=== PATIENT | male | born 1940 | race Two or more races ===

== ENCOUNTER 2017-10-10 09:36 | Outpatient (CLI) | payer OTHER | END 2017-10-10 16:33 | disposition home or self-care (01) | LOC: RAD 501 09:36 | DX: M15.8 Other polyosteoarthritis (principal); M05.79 Rheumatoid arthritis with rheumatoid factor of multiple sites without organ or systems involvement; M06.89 Other specified rheumatoid arthritis, multiple sites ==

== ENCOUNTER 2020-07-27 10:37 | Inpatient (IN) | payer OTHER ==
[~2020-07-27] VITALS: Ht 177.8 cm; Wt 77.1 kg
--- NOTE | 2020-07-27 10:44 | NUR ---
PACIENTE ALERTA Y ORIENTADO EN LIANNA CESAR ESFERAS, REFIERE MALESTAR EN AREA PELVICA Y SANGRADO EN LA ORINA DESDE HACE UNOS PHIPPS.
--- NOTE | 2020-07-27 10:59 | NUR ---
PTE ES EVALUADO POR DRA. ODONNELL QUIEN ORDENA TRATAMIENTO. RN. Ulises KHAN EDUCA A PTE SOBRE ORDENES MEDICAS Y REFIERE COMPRENDER. CANALIZA Y COLECTA MUESTRAS DE LABORATORIO BAJO MEDIDAS ASEPTICAS. SE MANTIENE A PTE CON IV FLUIDS 0.9% NSS @ 100 ML/HR.
--- NOTE | 2020-07-27 15:28 | NUR ---
PT ALERTA Y ORIENTADO X3 ESFERAS SE RECIBE EN MADHAV CON BARANDAS ELEVADAS Y FRENOS COLOCADOS. HEPARIN LOCK E IVLFUIDS PATENTES. SE MANTIENE BAJO OBSERVACION POR CAMBIOS EN CYRUS, TRANQUILO Y SIN DIFICULTAD RESPIRATORIA. PENDIENTE VISITA DE INTERNISTA DR BUD SHRESTHA. PT [place].
[2020-07-29] MEDS ORDERED: BREO ELLIPTA 21 EACH (10:06)
[2020-07-29] MEDS ORDERED: DILTIAZEM 24HR240 MG (10:06)
[2020-09-06] MEDS ORDERED: RISPERDAL0.5 MG PO (12:35)
[2020-09-06] MEDS ORDERED: URETRON D-S TAB1 TAB PO (12:35)
[2020-09-06] MEDS ORDERED: PRE PROTEIN1 EACH PO (12:35)
[2020-09-06] MEDS ORDERED: CARDIZEM CD240 MG PO (12:35)
[2020-09-06] MEDS ORDERED: PROTONIX40 MG PO (12:35)
[2020-09-06] MEDS ORDERED: INTESTINEX680 M1 PO (12:35)
[2020-09-06] MEDS ORDERED: TAMS0.4C PO (12:35)
[2020-09-06] MEDS ORDERED: FOLIC ACID1 MG PO (12:35)
[2020-09-06] MEDS ORDERED: INTEGRA PLUS C1 EACH PO (12:35)
[2020-09-06] MEDS ORDERED: VITAMIN B-1000.4 MG PO (12:35)
== END 2020-09-06 15:09 | disposition home or self-care (01) | DRG 666 ==
LOC: ER 10:37 → MEDI 18:02 → SURG 18:02 → MEDJ 08-16 17:30 → MEDI 08-19 16:39
PROVIDERS: Urology; ADMIT Internal Medicine; ATTEND Internal Medicine
PROC: 30233N1 Transfusion of Nonautologous Red Blood Cells into Peripheral Vein, Percutaneous Approach (ICD-10-PCS; 2020-07-28)
PROC: 0T9130Z Drainage of Left Kidney with Drainage Device, Percutaneous Approach (ICD-10-PCS; 2020-07-29)
PROC: 0T9030Z Drainage of Right Kidney with Drainage Device, Percutaneous Approach (ICD-10-PCS; 2020-07-29)
PROC: 0TBB8ZZ Excision of Bladder, Via Natural or Artificial Opening Endoscopic (ICD-10-PCS; 2020-07-31)
PROC: 0VB08ZZ Excision of Prostate, Via Natural or Artificial Opening Endoscopic (ICD-10-PCS; principal; 2020-07-31 07:00)
PROC: 0TBB8ZX Excision of Bladder, Via Natural or Artificial Opening Endoscopic, Diagnostic (ICD-10-PCS; 2020-08-08)
PROC: 02HV33Z Insertion of Infusion Device into Superior Vena Cava, Percutaneous Approach (ICD-10-PCS; 2020-08-12)
PROC: 4A12X4Z Monitoring of Cardiac Electrical Activity, External Approach (ICD-10-PCS; 2020-08-19)
PROC: 0DB68ZX Excision of Stomach, Via Natural or Artificial Opening Endoscopic, Diagnostic (ICD-10-PCS; 2020-08-22)
PROC: 0TP5X0Z Removal of Drainage Device from Kidney, External Approach (ICD-10-PCS; 2020-08-24)
PROC: 8E0ZXY6 Isolation (ICD-10-PCS; 2020-08-30)
DX: C67.9 Malignant neoplasm of bladder, unspecified (principal); E87.2 Acidosis; N17.8 Other acute kidney failure; N13.6 Pyonephrosis; K92.1 Melena; D62 Acute posthemorrhagic anemia; D40.0 Neoplasm of uncertain behavior of prostate; R31.0 Gross hematuria; I10 Essential (primary) hypertension; J44.9 Chronic obstructive pulmonary disease, unspecified; Z20.828 Contact with and (suspected) exposure to other viral communicable diseases; K29.60 Other gastritis without bleeding; B96.1 Klebsiella pneumoniae [K. pneumoniae] as the cause of diseases classified elsewhere; B96.29 Other Escherichia coli [E. coli] as the cause of diseases classified elsewhere

== ENCOUNTER 2020-10-17 21:02 | Emergency (ER) | payer OTHER ==
[~2020-10-17] VITALS: Ht 177.8 cm; Wt 72.6 kg
[~2020-10-17 21:02] MED LIST: BREO ELLIPTA 21 EACH; CARDIZEM CD240 MG PO; DILTIAZEM 24HR240 MG; FOLIC ACID1 MG PO; INTEGRA PLUS C1 EACH PO; INTESTINEX680 M1 PO; PRE PROTEIN1 EACH PO; PROTONIX40 MG PO; RISPERDAL0.5 MG PO; TAMS0.4C PO; URETRON D-S TAB1 TAB PO; VITAMIN B-1000.4 MG PO
[2020-10-17] MEDS ORDERED: GABAPENTIN 100 MG (21:22)
[2020-10-17] MEDS ORDERED: AMBIEN5 MG (21:23)
[2020-10-17] MEDS ORDERED: LEVAQUIN (21:23)
[2020-10-17] MEDS ORDERED: CARDIZEM CD240 MG (21:24)
== END 2020-10-17 23:43 | disposition home or self-care (01) ==
LOC: ER 21:02
DX: R33.8 Other retention of urine (principal); T83.091A Other mechanical complication of indwelling urethral catheter, initial encounter

== ENCOUNTER 2020-10-24 07:04 | Inpatient (IN) | payer OTHER ==
[~2020-10-24 07:04] MED LIST changes: +AMBIEN5 MG; +CARDIZEM CD240 MG; +GABAPENTIN 100 MG; +LEVAQUIN
== END 2020-10-26 10:37 | disposition home or self-care (01) | DRG 667 ==
LOC: CIR.AMB 07:04 → O/R 13:54 → SURG 13:54
PROVIDERS: ADMIT Urology; ATTEND Urology
PROC: 0TBB8ZZ Excision of Bladder, Via Natural or Artificial Opening Endoscopic (ICD-10-PCS; 2020-10-24)
PROC: 0VT08ZZ Resection of Prostate, Via Natural or Artificial Opening Endoscopic (ICD-10-PCS; principal; 2020-10-24 09:00)
DX: C67.4 Malignant neoplasm of posterior wall of bladder (principal); N40.1 Benign prostatic hyperplasia with lower urinary tract symptoms; R33.8 Other retention of urine; Z20.828 Contact with and (suspected) exposure to other viral communicable diseases

== ENCOUNTER 2021-07-07 05:50 | Day surgery (SDC) | payer OTHER ==
[~2021-07-07 05:50] MED LIST changes: +BREO PO; +FOLIC ACID PO; +INTEGRA CAPSUL1 EACH PO
== END 2021-07-07 13:50 | disposition home or self-care (01) ==
LOC: CIR.AMB 05:50
PROVIDERS: ATTEND Urology
DX: C67.8 Malignant neoplasm of overlapping sites of bladder (principal); Z20.822 Contact with and (suspected) exposure to COVID-19